=== PATIENT | female | born 1945 | race African-American/Black ===

== ENCOUNTER → 2018-11-19 | Day surgery (SDC) | payer MEDICARE, OTHER ==
[2018-10-08 15:58] LABS: BASOPHILS % 0.3 % (0.0-1.0); EOSINOPHILS # (AUTO) 0.1 (0.0-0.4); EOSINOPHILS % 0.8 % (0.0-6.0); HEMATOCRIT 36.8 % (34.2-44.1); HEMOGLOBIN 12.6 g/dL (12.0-16.0); LYMPHOCYTES # (AUTO) 2.6 (1.0-3.2); LYMPHOCYTES % 36.5 % (18.0-39.1); MEAN CORPUSCULAR HEMOGLOBIN 30.5 pg (28-32); MEAN CORPUSCULAR HGB CONC 34.2 g/dL (31-35); MEAN CORPUSCULAR VOLUME 89.1 fL (81-99); MONOCYTES # (AUTO) 0.5 (0.2-0.8); MONOCYTES % 7.3 % (4.4-11.3); NEUTROPHILS # (AUTO) 3.9 (2.1-6.9); NEUTROPHILS % 54.8 % (38.7-80.0); PLATELET COUNT 193 x10e3/uL (140-360); RED BLOOD COUNT 4.13 x10e6/uL (3.6-5.1); RED CELL DISTRIBUTION WIDTH 12.6 % (11.7-14.4)
[2018-10-08 16:16] LABS: ANION GAP 13.5 mmol/L (8-16); CALCIUM 9.6 mg/dL (8.4-10.2); CREATININE, SERUM 1.28 mg/dL (0.57-1.11); POTASSIUM 4.5 mmol/L (3.5-5.1)
[~2018-11-19] MED LIST: ATORVASTATIN CA20 MG PO; CARVEDILOL3.125 MG PO; LEVEMIR100 UNIT/1 SC; NITROGLYCERIN1 EAC1 TD; PANTOPRAZOLE SO40 MG PO; PENTOXIFYLLINE400 MG PO; PROPOFOL IV EMULSION 10 MG/ML 50 ML VIAL ONE; RANITIDINE HCL150 M1 PO; SOMA350 MG PO; TYLENOL WITH C1 EACH PO; ZOLPIDEM TARTRAT5 MG PO
--- OUTSIDE RECORDS SUMMARY | 2018-11-19 09:09 | XMS REPORT | Clinical Summary ---
Author Author [facility] Organization [facility] Address Unknown Phone Unavailable Care Team Providers Care Front End Engineer Name Role Phone Black Gee MD PCP Allergies No Known Allergies Medications End Date Status Medication Sig Dispensed Refills Start Date Active insulin DETEMIR (LEVEMIR Inject 20 0 FLEXTOUCH) 100 unit/mL (3 Units under mL) insulin pen the skin 2 (two) times a day. Active levoFLOXacin (LEVAQUIN) Take 500 mg 0 500 MG tablet by mouth daily. Started 02-25-17 [id number] Active glipiZIDE (GLUCOTROL) 5 Take 5 mg by 0 MG tablet mouth 2 (two) times a day before meals. Active carvedilol (COREG) 3.125 Take 3.125 mg 0 MG tablet by mouth 2 (two) times a day with meals. Active meloxicam (MOBIC) 7.5 mg Take 7.5 mg 0 tablet by mouth nightly. Active omeprazole (PriLOSEC) 40 Take 40 mg by 0 MG capsule mouth daily. Active aspirin (ECOTRIN) 81 MG Take 81 mg by 0 enteric coated tablet mouth daily. Active Problems Not on file Encounters Care Team Description Date Type Specialty 02/11/2018 Emergency Emergency Medicine after 11/18/2017 Social History Date Tobacco Use Types Packs/Day Years Used Former Smoker Alcohol Use Drinks/Week oz/Week Comments Yes Sex Assigned at Date Recorded Not on file Industry Job Start Date Occupation Not on file Not on file Not on file Travel End Travel History Travel Start No recent travel history available. Last Filed Vital Signs Time Taken Vital Sign Reading 02/11/2018 1:30 PM CDT Blood Pressure 136/65 02/11/2018 1:30 PM CDT Pulse 78 02/11/2018 1:30 PM CDT Temperature 36.5 C (97.7 F) 02/11/2018 1:30 PM CDT Respiratory Rate 18 02/11/2018 1:30 PM CDT Oxygen Saturation 99% - Inhaled Oxygen - Concentration 02/11/2018 1:30 PM CDT Weight 63.5 kg (140 lb) 02/11/2018 1:30 PM CDT Height 170.2 cm (5' 7") 02/11/2018 1:30 PM CDT Body Mass Index 21.93 Plan of Treatment Not on file Procedures Comments Procedure Name Priority Date/Time Associated Diagnosis ECG 12-LEAD STAT 02/11/2018 2:24 PM CDT after 11/18/2017 Results * ECG 12 lead (02/11/2018 2:24 PM CDT) Ventricular 75 [facility] rate Atrial rate 75 [facility] IN interval 132 [facility] QRSD interval 80 [facility] QT interval 378 [facility] QTC interval 422 [facility] P axis 1 57 [facility] QRS axis 1 68 [facility] T wave axis -62 [facility] EKG impression Normal sinus rhythm-Inferior [facility] infarct , age undetermined-T wave abnormality, consider lateral ischemia-Abnormal ECG-In automated comparison with ECG of 26-FEB-2017 09:51,-Inferior infarct is now present-T wave inversion now evident in Inferior leads-T wave inversion less evident in Anterior leads-T wave inversion now evident in Lateral leads- Specimen Performing Organization Address City/State/[place]code [place] [facility] [place] [address] [place] [address] after 11/18/2017 Insurance Type Payer Benefit Subscriber ID Effective Phone Address Plan / Dates Group HMO [employer] 2018- -AMERIVANT Present AGE [facility] ([place]) [place] [address] Advance Directives Patient has advance care planning documents on file. For more information, pleas e contact: Christopher Mchugh [address] [place] [address]
[2018-11-19 12:05] VITALS: BP 103/59
== END | disposition home or self-care (01) ==
LOC: OR 09:03
PROVIDERS: ATTEND Internal Medicine
DX: D12.5 Benign neoplasm of sigmoid colon (principal); K59.00 Constipation, unspecified; K58.9 Irritable bowel syndrome, unspecified; K92.1 Melena; I25.10 Atherosclerotic heart disease of native coronary artery without angina pectoris; Z80.3 Family history of malignant neoplasm of breast; Z01.810 Encounter for preprocedural cardiovascular examination; Z01.812 Encounter for preprocedural laboratory examination; E11.9 Type 2 diabetes mellitus without complications; I25.2 Old myocardial infarction; K63.5 Polyp of colon; Z79.4 Long term (current) use of insulin
CPT/HCPCS: 36415 ×2; 45385; 80048; 82948; 85025; 93005; J2704; 45384